=== PATIENT | male | born 1990 | race Caucasian/White ===

== ENCOUNTER → 2020-03-22 12:06 | Outpatient (BNVA) | payer OTHER, SELFPAY | PROVIDERS: Family Provider Nurse Practitioner Family; PCP Nurse Practitioner Family; Visit Provider Nurse Practitioner Family | DX: E03.9 Hypothyroidism, unspecified (principal) | CPT/HCPCS: 84443 ==

== ENCOUNTER → 2021-04-25 08:57 | Outpatient (BNVA) | payer OTHER, SELFPAY | PROVIDERS: Family Provider Nurse Practitioner Family; PCP Nurse Practitioner Family; Visit Provider Nurse Practitioner Family | DX: E03.9 Hypothyroidism, unspecified (principal) | CPT/HCPCS: 80053; 80061; 84443; 85025 ==

== ENCOUNTER 2021-12-04 01:27 | Emergency (ER) | payer OTHER, SELFPAY ==
--- NOTE | 2021-12-04 01:37 | ECG_ITS ---
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 Measurements Intervals [place] Rate: 102 P: 60 [place]: 128 QRS: 50 QRSD: 86 T: 33 QT: 332 QTc: 434 Interpretive Statements SINUS TACHYCARDIA POSSIBLE RIGHT VENTRICULAR CONDUCTION DELAY [RSR (QR) IN V1/V2] NONSPECIFIC T-WAVE ABNORMALITY ABNORMAL RHYTHM ECG No previous ECG available for comparison Electronically Signed On 12-05-2021 0:39:39 CDT by Dami Gray M.D. [id number]
--- NOTE | 2021-12-04 01:40 | XRR_ITS ---
PROCEDURE INFORMATION: Exam: XR Chest Exam date and time: 12/04/2021 2:01 AM Age: 31 years old Clinical indication: Chest pressure and chest wall pain and right-sided; Additional info: Chest pain began 6 hrs ago TECHNIQUE: Imaging protocol: Radiologic exam of the chest. Views: 1 view. COMPARISON: No relevant prior studies available. FINDINGS: Lungs: Unremarkable. No consolidation. Pleural spaces: Unremarkable. No pleural effusion. No pneumothorax. Heart/Mediastinum: Unremarkable. No cardiomegaly. Bones/joints: Unremarkable. XR/XR chest 1V portable [id number] IMPRESSION: No acute findings.
[2021-12-04 01:43] VITALS: BP 143/81; PULSE 100; RESP 18; TEMP 37.2; O2SAT 97; BMI 25.5
[2021-12-04 01:49] LABS: Basophils % 0.3 %; Eosinophils # 0.1 10^3/uL (0.0-0.8); Eosinophils % 0.5 %; Hemoglobin 15.5 g/dL (11.7-16.6); Lymphocytes # 1.2 10^3/uL (0.8-4.8); Lymphocytes % 9.5 %; Mean Corpuscular HGB Conc 33.7 g/dL (30.0-36.0); Mean Platelet Volume 9.6 fL (7.4-10.4); Monocytes # 1.2 10^3/uL (0.2-0.9); Monocytes % 8.8 %; Neutrophils # 10.54 10^3/uL (1.8-7.7); Neutrophils % 80.6 %; Nucleated Red Blood Cells % 0 %; Platelet Count 201 10^3/cmm (130-400); Red Blood Count 5.17 10^6/uL (4.1-5.3); Red Cell Distribution Width 11.7 % (12.1-15.1); White Blood Count 13.1 10^3/uL (4.0-10.0)
--- NOTE | 2021-12-04 01:56 | W.ED.CHESTPA ---
Documented by User: ELIZABETH Antonio 12/05/21 12:07 HPI - Chest Pain General: Chief Complaint: Chest Pain Stated Complaint: Chest pain, sob Time Seen by Provider: 12/04/21 01:33 History of Present Illness: 31-year-old male patient comes in today with complaints of right anterior chest wall pain. Patient reports pain is increased with deep inspiration and movement. Patient is concerned of a blood clot due to the fact of a recent injury to the right lower leg with repair at the end of September. Patient does take levothyroxine routinely for hypothyroidism. Associated symptoms: Deny dyspnea Review of Systems General: Reports: 10 or more systems reviewed and unremarkable except in HPI and below Card: Reports: chest pain Resp: Denies: dyspnea PFSH ED PFSH: Medical History History of radioactive iodine thyroid ablation Hypothyroidism, adult Social History Smoking and tobacco status: never smoked Second hand smoke exposure: No Alcohol intake: never Adopted: No Lives independently: Yes Marital status: Single Highest education level completed: High School Graduate Current occupational status: employed Physical Exam Const: COMMON NORMALS: alert HENMT: COMMON NORMALS: normocephalic HEAD & SCALP: normocephalic Chest: CHEST: Yes tenderness (Right anterior ribs) Resp: COMMON NORMALS: normal respiratory effort and clear to auscultation bilaterally AUSCULTATION: clear to auscultation bilaterally Cardio: COMMON NORMALS: regular rate RATE: regular rate Extremity: COMMON NORMALS: normal to inspection Neuro: SENSORIUM/ORIENTATION: Yes alert Skin: COMMON NORMALS: no rashes or lesions noted GENERAL SKIN EXAM: no rashes or lesions noted Course Vital Signs: Vital signs: Vital Signs Temperature 98.9 F 12/04/21 01:43 Pulse Rate 82 12/04/21 03:53 Respiratory Rate 16 12/04/21 03:53 Blood Pressure 130/87 12/04/21 03:53 Pulse Oximetry 96 12/04/21 03:53 Oxygen Delivery Me thod 12/04/21 01:43 MDM - Chest Pain Medical Decision Making 31-year-old male patient comes in today with right anterior chest pain. On exam patient has tenderness with palpation of the chest wall. Lungs were clear to auscultation. Skin was warm and dry. Vital signs noted a mild increase in pulse between 90 and 110, respirations in the 20s, and oxygen saturation in the mid 90s. Differential diagnosis includes costochondritis, pleurisy, pulmonary embolism, pneumonia. Lab Data : 12/04/21 01:45 12/04/21 01:45 Radiology Impressions Chest X-Ray 12/04/21 01:40 IMPRESSION: No acute findings. Chest CTA 12/04/21 02:18 IMPRESSION: 1. Acute pulmonary embolus within a segmental branch of the right lower lobe pulmonary artery. 2. A patchy opacity seen in the right posterior costophrenic recess likely representing atelectasis. ADDENDUM: 12/04/21 0331 CRITICAL RESULT: THIS REPORT CONTAINS FINDINGS THAT MAY BE CRITICAL TO PATIENT CARE. The findings were verbally communicated via telephone conference with Dr. Ledesma at 3:29 AM CDT on 12/04/2021. The findings were acknowledged and understood. Laboratory Results WBC 13.1 10^3/uL (4.0-10.0) H 12/04/21 01:45 RBC 5.17 10^6/uL (4.1-5.3) 12/04/21 01:45 Hgb 15.5 g/dL (11.7-16.6) 12/04/21 01:45 Hct 46.0 % (42.0-52.0) 12/04/21 01:45 MCV 89.0 fl (80-94) 12/04/21 01:45 MCH 30.0 pg (28.0-34.0) 12/04/21 01:45 MCHC 33.7 g/dL (30.0-36.0) 12/04/21 01:45 RDW 11.7 % (12.1-15.1) L 12/04/21 01:45 Plt Count 201 10^3/cmm (130-400) 12/04/21 01:45 MPV 9.6 fL (7.4-10.4) 12/04/21 01:45 Neut % (Auto) 80.6 % 12/04/21 01:45 Lymph % (Auto) 9.5 % 12/04/21 01:45 [place] % (Auto) 8.8 % 12/04/21 01:45 Eos % (Auto) 0.5 % 12/04/21 01:45 Baso % (Auto) 0.3 % 12/04/21 01:45 Neut # (Auto) 10.54 10^3/uL (1.8-7.7) H 12/04/21 01:45 Lymph # (Auto) 1.2 10^3/uL (0.8-4.8) 12/04/21 01:45 [place] # (Auto) 1.2 10^3/uL (0.2-0.9) H 12/04/21 01:45 Eos # (Auto) 0.1 10^3/uL (0.0-0.8) 12/04/21 01:45 Baso # (Auto) 0.0 10^3/uL (0.0-0.1) 12/04/21 01:45 Nucleated RBC % (auto) 0 % 12/04/21 01:45 Nucleated RBCs # 0.0 /100WBC 12/04/21 01:45 D-Dimer 3.12 ug/mIFEU (0-0.59) H 12/04/21 01:45 Sodium 139 mmol/L (136-145) 12/04/21 01:45 Potassium 3.9 mmol/L (3.5-5.1) 12/04/21 01:45 Chloride 98 mmol/L (98-107) 12/04/21 01:45 Carbon Dioxide 28 mmol/L (22-29) 12/04/21 01:45 Anion Gap 16.9 (5-19) 12/04/21 01:45 BUN 16 mg/dL (6-20) 12/04/21 01:45 Creatinine 0.9 mg/dL (0.7-1.2) 12/04/21 01:45 GFR Calculation 98.4 mL/min (90-130) 12/04/21 01:45 Glucose 102 mg/dL (65-115) 12/04/21 01:45 Calculated Osmolality 289 mOsm/kg (285-295) 12/04/21 01:45 Calcium 9.3 mg/dL (8.5-10.5) 12/04/21 01:45 Total Bilirubin 0.9 mg/dL (0.15-1.2) 12/04/21 01:45 AST 19 U/L (0-40) 12/04/21 01:45 ALT 17 U/L (0-41) 12/04/21 01:45 Alkaline Phosphatase 94 IU/L (40-130) 12/04/21 01:45 Troponin T Baseline 7 ng/L (0-15) 12/04/21 01:45 Total Protein 7.7 g/dL (6.6-8.7) 12/04/21 01:45 Albumin 4.5 g/dL (3.5-5.2) 12/04/21 01:45 Globulin 3.2 g/dL (1.3-4.6) 12/04/21 01:45 EKG Data EKG 1: EKG interpretation date: 12/04/21 EKG interpretation time: 02:02 Discharge Plan Discharge Patient Disposition: Home Clinical Impression: Pulmonary embolism Qualifiers: Pulmonary embolism type: unspecified Chronicity: acute Acute cor pulmonale presence: without acute cor pulmonale Qualified Code(s): I26.99 - Other pulmonary embolism without acute cor pulmonale Condition: Stable Prescriptions: New Eliquis 5 mg tablet 10 mg PO BID 7 Days Qty: 28 0RF Eliquis 5 mg tablet 5 mg PO BID Qty: 60 0RF Rx Instructions: start after first week of 10mg bid hydrocodone-acetaminophen 5-325 mg tablet 1 tab PO Q6H PRN (Reason: pain) Qty: 14 0RF No Action levothyroxine 112 mcg tablet 112 mcg PO DAILY 90 Days Qty: 90 3RF Rx Instructions: no substitutions, levothyroxine only Discharge Orders: Discharge ED (Routine); Ordered 12/04/21 Ordered By: Guy Ledesma Referrals: Shira Navarro FNP-C [Primary Care Provider] - 1-3 days Discharge Diet: Advance as tolerated Discharge Activity: Resume usual activity Patient Instructions: Pulmonary Embolism (ED) Coding Level of Care Code ED Sign Builder for Chg Fwd Exam Detailed Documented by User: Guy Ledesma MD 12/04/21 03:36 HPI - Chest Pain General: Chief Complaint: Chest Pain Stated Complaint: Chest pain, sob Time Seen by Provider: 12/04/21 01:33 [facility] ED PFSH: Medical History History of radioactive iodine thyroid ablation Hypothyroidism, adult Social History Smoking and tobacco status: never smoked Second hand smoke exposure: No Alcohol intake: never Adopted: No Lives independently: Yes Marital status: Single Highest education level completed: High School Graduate Current occupational status: employed Course Vital Signs: Vital signs: Vital Signs Temperature 98.9 F 12/04/21 01:43 Pulse Rate 82 12/04/21 03:53 Respiratory Rate 16 12/04/21 03:53 Blood Pressure 130/87 12/04/21 03:53 Pulse Oximetry 96 12/04/21 03:53 Oxygen Delivery Me thod 12/04/21 01:43 MDM - Chest Pain Medical Decision Making 31-year-old male patient comes in today with right anterior chest pain. On exam patient has tenderness with palpation of the chest wall. Lungs were clear to auscultation. Skin was warm and dry. Vital signs noted a mild increase in pulse between 90 and 110, respirations in the 20s, and oxygen saturation in the mid 90s. Differential diagnosis includes costochondritis, pleurisy, pulmonary embolism, pneumonia. Patient's CT shows a right-sided segmental PE he has no signs of heart strain troponin here is normal he is well-appearing here in no distress we will start him on Eliquis he is to follow-up with PCP in 5 to 7 days we will prescribe him pain meds as well. Lab Data : 12/04/21 01:45 12/04/21 01:45 Radiology Impressions Chest X-Ray 12/04/21 01:40 IMPRESSION: No acute findings. Chest CTA 12/04/21 02:18 IMPRESSION: 1. Acute pulmonary embolus within a segmental branch of the right lower lobe pulmonary artery. 2. A patchy opacity seen in the right posterior costophrenic recess likely representing atelectasis. ADDENDUM: 12/04/21 0331 CRITICAL RESULT: THIS REPORT CONTAINS FINDINGS THAT MAY BE CRITICAL TO PATIENT CARE. The findings were verbally communicated via telephone conference with Dr. Ledesma at 3:29 AM CDT on 12/04/2021. The findings were acknowledged and understood. Laboratory Results WBC 13.1 10^3/uL (4.0-10.0) H 12/04/21 01:45 RBC 5.17 10^6/uL (4.1-5.3) 12/04/21 01:45 Hgb 15.5 g/dL (11.7-16.6) 12/04/21 01:45 Hct 46.0 % (42.0-52.0) 12/04/21 01:45 MCV 89.0 fl (80-94) 12/04/21 01:45 MCH 30.0 pg (28.0-34.0) 12/04/21 01:45 MCHC 33.7 g/dL (30.0-36.0) 12/04/21 01:45 RDW 11.7 % (12.1-15.1) L 12/04/21 01:45 Plt Count 201 10^3/cmm (130-400) 12/04/21 01:45 MPV 9.6 fL (7.4-10.4) 12/04/21 01:45 Neut % (Auto) 80.6 % 12/04/21 01:45 Lymph % (Auto) 9.5 % 12/04/21 01:45 [place] % (Auto) 8.8 % 12/04/21 01:45 Eos % (Auto) 0.5 % 12/04/21 01:45 Baso % (Auto) 0.3 % 12/04/21 01:45 Neut # (Auto) 10.54 10^3/uL (1.8-7.7) H 12/04/21 01:45 Lymph # (Auto) 1.2 10^3/uL (0.8-4.8) 12/04/21 01:45 [place] # (Auto) 1.2 10^3/uL (0.2-0.9) H 12/04/21 01:45 Eos # (Auto) 0.1 10^3/uL (0.0-0.8) 12/04/21 01:45 Baso # (Auto) 0.0 10^3/uL (0.0-0.1) 12/04/21 01:45 Nucleated RBC % (auto) 0 % 12/04/21 01:45 Nucleated RBCs # 0.0 /100WBC 12/04/21 01:45 D-Dimer 3.12 ug/mIFEU (0-0.59) H 12/04/21 01:45 Sodium 139 mmol/L (136-145) 12/04/21 01:45 Potassium 3.9 mmol/L (3.5-5.1) 12/04/21 01:45 Chloride 98 mmol/L (98-107) 12/04/21 01:45 Carbon Dioxide 28 mmol/L (22-29) 12/04/21 01:45 Anion Gap 16.9 (5-19) 12/04/21 01:45 BUN 16 mg/dL (6-20) 12/04/21 01:45 Creatinine 0.9 mg/dL (0.7-1.2) 12/04/21 01:45 GFR Calculation 98.4 mL/min (90-130) 12/04/21 01:45 Glucose 102 mg/dL (65-115) 12/04/21 01:45 Calculated Osmolality 289 mOsm/kg (285-295) 12/04/21 01:45 Calcium 9.3 mg/dL (8.5-10.5) 12/04/21 01:45 Total Bilirubin 0.9 mg/dL (0.15-1.2) 12/04/21 01:45 AST 19 U/L (0-40) 12/04/21 01:45 ALT 17 U/L (0-41) 12/04/21 01:45 Alkaline Phosphatase 94 IU/L (40-130) 12/04/21 01:45 Troponin T Baseline 7 ng/L (0-15) 12/04/21 01:45 Total Protein 7.7 g/dL (6.6-8.7) 12/04/21 01:45 Albumin 4.5 g/dL (3.5-5.2) 12/04/21 01:45 Globulin 3.2 g/dL (1.3-4.6) 12/04/21 01:45 Discharge Plan Discharge Patient Disposition: Home Clinical Impression: Pulmonary embolism Qualifiers: Pulmonary embolism type: unspecified Chronicity: acute Acute cor pulmonale presence: without acute cor pulmonale Qualified Code(s): I26.99 - Other pulmonary embolism without acute cor pulmonale Condition: Stable Prescriptions: New Eliquis 5 mg tablet 10 mg PO BID 7 Days Qty: 28 0RF Eliquis 5 mg tablet 5 mg PO BID Qty: 60 0RF Rx Instructions: start after first week of 10mg bid hydrocodone-acetaminophen 5-325 mg tablet 1 tab PO Q6H PRN (Reason: pain) Qty: 14 0RF No Action levothyroxine 112 mcg tablet 112 mcg PO DAILY 90 Days Qty: 90 3RF Rx Instructions: no substitutions, levothyroxine only Discharge Orders: Discharge ED (Routine); Ordered 12/04/21 Ordered By: Guy Ledesma Referrals: Shira Navarro FNP-C [Primary Care Provider] - 1-3 days Discharge Diet: Advance as tolerated Discharge Activity: Resume usual activity Patient Instructions: Pulmonary Embolism (ED) Coding Level of Care Code ED Sign Builder for Gradyg Fwd Exam Detailed
[2021-12-04] MEDS: dexamethasone 10 mg/mL INJ IVP (02:06)
[2021-12-04] MEDS: ketorolac 30 mg/mL INJ 15 MG IVP (02:07)
[2021-12-04 02:09] LABS: D Dimer 3.12 ug/mIFEU (0-0.59)
[2021-12-04 02:14] LABS: Alanine Aminotransferase 17 U/L (0-41); Albumin Level 4.5 g/dL (3.5-5.2); Alkaline Phosphatase 94 IU/L (40-130); Anion Gap 16.9 (5-19); Aspartate Amino Transferase 19 U/L (0-40); Blood Urea Nitrogen 16 mg/dL (6-20); Calcium 9.3 mg/dL (8.5-10.5); Carbon Dioxide 28 mmol/L (22-29); Chloride 98 mmol/L (98-107); Globulin 3.2 g/dL (1.3-4.6); Glomerular Filtration Rate 98.4 mL/min (90-130); Glucose 102 mg/dL (65-115); Osmolality Calculated 289 mOsm/kg (285-295); Potassium 3.9 mmol/L (3.5-5.1); Sodium 139 mmol/L (136-145); Total Bilirubin 0.9 mg/dL (0.15-1.2); Total Protein 7.7 g/dL (6.6-8.7)
[2021-12-04 02:15] LABS: Troponin(5th) Baseline 7 ng/L (0-15)
--- NOTE | 2021-12-04 02:18 | CTR_ITS ---
PROCEDURE INFORMATION: Exam: CTA Chest With Contrast Exam date and time: 12/04/2021 2:53 AM Age: 31 years old Clinical indication: Chest wall pain and right-sided; Additional info: Chest pain, elvated d dimer TECHNIQUE: Imaging protocol: Computed tomographic angiography of the chest with contrast. 3D rendering (Not supervised by radiologist): MIP and/or 3D reconstructed images were created by the technologist. Radiation optimization: All CT scans at this facility use at least one of these dose optimization techniques: automated exposure control; mA and/or kV adjustment per patient size (includes targeted exams where dose is matched to clinical indication); or iterative reconstruction. Contrast material: OMNIPAQUE 350; Contrast volume: 95 ml; Contrast route: INTRAVENOUS (IV); COMPARISON: CR (CHEST, ) 12/04/2021 2:01 AM RADIATION DOSE METRICS: Total DLP (mGy-cm): 358.93 FINDINGS: Pulmonary arteries: There is intraluminal hypoattenuation filling defect seen within a segmental branch of the right lower lobe pulmonary artery compatible with acute pulmonary embolus. Aorta: Unremarkable. No aortic aneurysm. No aortic dissection. Lungs: See Pleural spaces finding. Pleural spaces: A patchy opacity seen in the right posterior costophrenic recess possibly representing atelectasis although a right basilar infiltrate and pneumonia cannot be excluded. Heart: Unremarkable. No cardiomegaly. No pericardial effusion. Heart RV/LV ratio: RV/LV ratio is 1.0. Lymph nodes: Unremarkable. No enlarged lymph nodes. Bones/joints: Unremarkable. No acute fracture. Soft tissues: Unremarkable. CT/CT angio chest PE protcl [id number] IMPRESSION: 1. Acute pulmonary embolus within a segmental branch of the right lower lobe pulmonary artery. 2. A patchy opacity seen in the right posterior costophrenic recess likely representing atelectasis.
[2021-12-04] MEDS: iohexol 350 mg/mL 100 mL Btl IV (03:04)
[2021-12-04] MEDS: apixaban 5 mg Tablet 10 MG PO (03:45)
[2021-12-04 03:53] VITALS: BP 130/87; PULSE 82; RESP 16; O2SAT 96
== END 2021-12-04 03:54 | disposition home or self-care (01) ==
PROVIDERS: Nurse Practitioner Family; Emergency Provider Emergency Medicine; PCP Nurse Practitioner Family
DX: I26.99 Other pulmonary embolism without acute cor pulmonale (principal)
CPT/HCPCS: 71045; 71275; 80053; 84484; 85025; 85378; 93005; 96374; 96375; 99285; J1100; J1885; Q9967

== ENCOUNTER 2021-12-06 09:06 | Observation (INO) | payer OTHER, SELFPAY ==
[2021-12-06] VITALS (37 sets, daily range): BP systolic 105–142; BP diastolic 64–97; PULSE 77–106; RESP 16–33; TEMP 36.8–37.7; O2SAT 89–96; BMI 25.5
--- NOTE | 2021-12-06 09:33 | XR_ITS ---
WS: [id number] XR chest 1V portable [id number] REASON FOR EXAM: cp and sob FINDINGS: Compared to the chest x-ray of 12/04/2021 ill-defined opacities are now identified in both lower lung f ields. There is blunting of the left costophrenic angle which could indicate a small amount of left p leural fluid. CT scan on 12/04/2021 demonstrated patchy lung opacity in the dependent posterior right l alethea. No other interval change or new finding. XR/XR chest 1V portable [id number] IMPRESSION: Progression of bilateral lung abnormality, presumably pneumonitis.
--- NOTE | 2021-12-06 09:34 | ECG_ITS ---
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 Measurements Intervals [place] Rate: 90 P: 57 VT: 112 QRS: 31 QRSD: 96 T: 19 QT: 349 QTc: 429 Interpretive Statements SINUS RHYTHM WITH SHORT VT INTERVAL POSSIBLE RIGHT VENTRICULAR CONDUCTION DELAY [RSR (QR) IN V1/V2] Compared to ECG 12/04/2021 01:37:40 Short VT interval now present Sinus tachycardia no longer present T-wave abnormality no longer present Electronically Signed On 12-07-2021 18:49:27 CDT by Courtney Drake M.D. [email or web address]/[id number]
--- NOTE | 2021-12-06 09:56 | W.ED.CHESTPA ---
HPI - Chest Pain General: Chief Complaint: Chest Pain Stated Complaint: chest pains Time Seen by Provider: 12/06/21 09:23 History of Present Illness: Patient is a 31-year-old male comes to the ED with chest pain and shortness of breath. Patient was seen here in the ED 2 days ago on December 04 and had same complaint and was diagnosed with a PE and was put on Eliquis. He has been taking the prescribed Eliquis since discharge from ED. When his symptoms first started couple days ago he was having pain on the right side of his chest. Over the last 24 hours he said the pain on the right side of his chest has resolved but he started developing some sharp pains on the left side of his chest. He rates him currently a 5 out of 10. Says his pain and shortness of breath symptoms worsen if he lies flat and improved when he is sitting up. Denies any fevers, cough or hemoptysis. Associated symptoms: Reports dyspnea; Deny abdominal pain, fever(s), nausea, palpitations or vomiting Review of Systems Const: Denies: fever(s), chills or fatigue Eyes: Denies: change in vision or eye discomfort ENMT: Denies: throat pain, odynophagia, nasal discharge or nasal congestion Card: Reports: chest pain; Denies: palpitations, edema, swelling of feet/ankles, dyspnea on exertion or orthopnea Resp: Reports: dyspnea; Denies: productive cough or non-productive cough GI: Denies: abdominal pain, nausea, vomiting, diarrhea, constipation or hematochezia : Denies: flank pain, difficulty urinating, dysuria or hematuria Musc: Denies: neck pain, back pain or extremity swelling Skin/Breast: Denies: rash or new lesions Neuro: Denies: headache(s), numbness in extremities or weakness in extremities PFSH ED PFSH: Medical History History of radioactive iodine thyroid ablation Hypothyroidism, adult Surgical History History of surgery on lower extremity Social History Smoking and tobacco status: never smoked Second hand smoke exposure: No Alcohol intake: never Adopted: No Lives independently: Yes Marital status: Single Highest education level completed: High School Graduate Current occupational status: employed Physical Exam Const: COMMON NORMALS: patient oriented x3 HENMT: COMMON NORMALS: normocephalic HEAD & SCALP: normocephalic MOUTH: Normal oral and palatal mucosa present THROAT: posterior oropharynx normal and uvula midline Neck/C-Spine: COMMON NORMALS: supple GENERAL: Yes normal visual inspection Resp: COMMON NORMALS: normal respiratory effort, No retractions, No use of accessory muscles and clear to auscultation bilaterally AUSCULTATION: clear to auscultation bilaterally Cardio: COMMON NORMALS: regular rate, regular rhythm, S1 normal heart sound present, S2 normal heart sound present, No gallops present (Cardio), No clicks present (Cardio), No murmurs present (Cardio) and Peripheral pulses 2+ throughout RATE: regular rate RHYTHM: regular rhythm HEART SOUNDS: S1 normal heart sound present and S2 normal heart sound present PERIPHERAL PULSES: Peripheral pulses 2+ throughout GI: COMMON NORMALS: Normal to inspection, nondistended, normoactive bowel sounds present, Soft to palpation, non-tender and no masses PALPATION: Yes Soft to palpation : COMMON NORMALS: Yes no CVA tenderness BLADDER/KIDNEY EXAM: Yes no CVA tenderness Back/Pelvis: COMMON NORMALS: no CVA tenderness Extremity: COMMON NORMALS: normal to inspection Neuro: COMMON NORMALS: patient oriented x3 GAIT: Yes Normal gait present Skin: GENERAL SKIN EXAM: dry skin Course Vital Signs: Vital signs: Vital Signs Temperature 98.9 F 12/07/21 04:00 Pulse Rate 78 12/07/21 05:09 Respiratory Rate 18 12/07/21 04:00 Blood Pressure 110/73 12/07/21 04:00 Pulse Oximetry 96 12/07/21 00:00 Oxygen Delivery Me thod 12/06/21 21:02 MDM - Chest Pain Medical Decision Making Patient is a 31-year-old male comes to the ED with new left-sided chest pain. Patient was seen here in the ED 2 days ago on December 04 and was diagnosed with a PE and started on Eliquis. Vitals are stable. Exam of patient is benign. CBC and CMP were unremarkable. Troponins negative. EKG showed no acute findings. Patient's chest pain was not improving with morphine and Dilaudid. CTA of chest was done to see if there is any changes in PE. CTA of chest showed new PE in the left upper and left lower lobe segmental branches and it did note some mild right heart strain that is new as well. Bilateral lower lobe pulmonary infarcts noted. Given patient's pain and new PE with right heart strain, I talk with Dr. Marie about having patient case and he agreed to have patient admitted. Dr. Marie contacted hospitalist patient was admitted to the hospital. Lab Data I reviewed the patient's lab results. : 12/07/21 05:17 12/07/21 05:17 Radiology Impressions Chest X-Ray 12/06/21 09:33 IMPRESSION: Progression of bilateral lung abnormality, presumably pneumonitis. Chest CTA 12/06/21 12:14 IMPRESSION: 1. Suboptimal opacification of the pulmonary arteries. 2. Despite the suboptimal opacification new pulmonary emboli is noted extending into the LEFT upper and LEFT lower lobe segmental branches. 3. New small bilateral pleural effusions. 4. Progression of bilateral lower lobe pulmonary infarcts and an additional infarct at the lingula. 5. Mild RIGHT heart strain is new. Laboratory Results WBC 10.0 10^3/uL (4.0-10.0) 12/06/21 10:12 RBC 4.97 10^6/uL (4.1-5.3) 12/06/21 10:12 Hgb 14.9 g/dL (11.7-16.6) 12/06/21 10:12 Hct 45.2 % (42.0-52.0) 12/06/21 10:12 MCV 90.9 fl (80-94) 12/06/21 10:12 MCH 30.0 pg (28.0-34.0) 12/06/21 10:12 MCHC 33.0 g/dL (30.0-36.0) 12/06/21 10:12 RDW 11.9 % (12.1-15.1) L 12/06/21 10:12 Plt Count 197 10^3/cmm (130-400) 12/06/21 10:12 MPV 9.6 fL (7.4-10.4) 12/06/21 10:12 Neut % (Auto) 76.1 % 12/06/21 10:12 Lymph % (Auto) 12.1 % 12/06/21 10:12 [place] % (Auto) 11.1 % 12/06/21 10:12 Eos % (Auto) 0.2 % 12/06/21 10:12 Baso % (Auto) 0.3 % 12/06/21 10:12 Neut # (Auto) 7.58 10^3/uL (1.8-7.7) 12/06/21 10:12 Lymph # (Auto) 1.2 10^3/uL (0.8-4.8) 12/06/21 10:12 [place] # (Auto) 1.1 10^3/uL (0.2-0.9) H 12/06/21 10:12 Eos # (Auto) 0.0 10^3/uL (0.0-0.8) 12/06/21 10:12 Baso # (Auto) 0.0 10^3/uL (0.0-0.1) 12/06/21 10:12 Nucleated RBC % (auto) 0 % 12/06/21 10: Nucleated RBCs # 0.0 /100WBC 12/06/21 10:12 PT 16.00 SECONDS (12.1-14.9) H 12/06/21 12:33 INR 1.24 (0.8-1.2) H 12/06/21 12:33 APTT 33.9 SECONDS (23.9-36.7) 12/06/21 12:33 Sodium 140 mmol/L (136-145) 12/06/21 10:20 Potassium 4.3 mmol/L (3.5-5.1) 12/06/21 10:20 Chloride 98 mmol/L (98-107) 12/06/21 10:20 Carbon Dioxide 26 mmol/L (22-29) 12/06/21 10:20 Anion Gap 20.3 (5-19) H 12/06/21 10:20 BUN 12 mg/dL (6-20) 12/06/21 10:20 Creatinine 0.9 mg/dL (0.7-1.2) 12/06/21 10:20 GFR Calculation 98.4 mL/min (90-130) 12/06/21 10:20 Glucose 80 mg/dL (65-115) 12/06/21 10:20 Calculated Osmolality 289 mOsm/kg (285-295) 12/06/21 10:20 Calcium 9.5 mg/dL (8.5-10.5) 12/06/21 10:20 Total Bilirubin 0.7 mg/dL (0.15-1.2) 12/06/21 10:20 AST 21 U/L (0-40) 12/06/21 10:20 ALT 15 U/L (0-41) 12/06/21 10:20 Alkaline Phosphatase 86 IU/L (40-130) 12/06/21 10:20 Troponin T Baseline 6 ng/L (0-15) 12/06/21 10:12 Troponin T 120 Minute 6.00 ng/L (0-15) 12/06/21 12:33 Delta Troponin T 0 ABS# (0-10) 12/06/21 12:33 Total Protein 8.0 g/dL (6.6-8.7) 12/06/21 10:20 Albumin 4.4 g/dL (3.5-5.2) 12/06/21 10:20 Globulin 3.6 g/dL (1.3-4.6) 12/06/21 10:20 EKG Data EKG 1: EKG interpretation date: 12/06/21 Interpretation: Sinus rhythm, 90 bpm, no ST segment elevation or depression seen. Discharge Plan Discharge Patient Disposition: Admitted As Inpatient Admit Provider: Althea Vance Clinical Impression: Pulmonary embolism, Chest pain Condition: Stable Coding Level of Care Code ED Immigration Case Manager for Chg Fwd Exam Comprehensive
[2021-12-06 10:37] LABS: Basophils % 0.3 %; Eosinophils % 0.2 %; Hematocrit 45.2 % (42.0-52.0); Hemoglobin 14.9 g/dL (11.7-16.6); Lymphocytes # 1.2 10^3/uL (0.8-4.8); Lymphocytes % 12.1 %; Mean Corpuscular Volume 90.9 fl (80-94); Mean Platelet Volume 9.6 fL (7.4-10.4); Monocytes # 1.1 10^3/uL (0.2-0.9); Monocytes % 11.1 %; Neutrophils # 7.58 10^3/uL (1.8-7.7); Neutrophils % 76.1 %; Nucleated Red Blood Cells % 0 %; Platelet Count 197 10^3/cmm (130-400); Red Blood Count 4.97 10^6/uL (4.1-5.3); Red Cell Distribution Width 11.9 % (12.1-15.1)
[2021-12-06 10:49] LABS: Troponin(5th) Baseline 6 ng/L (0-15)
[2021-12-06 11:25] LABS: Albumin Level 4.4 g/dL (3.5-5.2); Alkaline Phosphatase 86 IU/L (40-130); Blood Urea Nitrogen 12 mg/dL (6-20); Calcium 9.5 mg/dL (8.5-10.5); Carbon Dioxide 26 mmol/L (22-29); Chloride 98 mmol/L (98-107); Globulin 3.6 g/dL (1.3-4.6); Glomerular Filtration Rate 98.4 mL/min (90-130); Glucose 80 mg/dL (65-115); Osmolality Calculated 289 mOsm/kg (285-295); Sodium 140 mmol/L (136-145); Total Bilirubin 0.7 mg/dL (0.15-1.2)
[2021-12-06 11:26] LABS: Alanine Aminotransferase 15 U/L (0-41); Anion Gap 20.3 (5-19); Aspartate Amino Transferase 21 U/L (0-40); Potassium 4.3 mmol/L (3.5-5.1)
[2021-12-06] MEDS: ondansetron 2 mg/ML SDV 2 mL 4 MG IVP (11:38)
[2021-12-06] MEDS: morphine 4 mg/mL SDV 1 mL IVP (11:39)
--- NOTE | 2021-12-06 12:14 | CT_ITS ---
WS: [id number] CT CHEST ANGIOGRAPHY WITH REFORMATS HISTORY: new and intense Left side cp w/ SOB TECHNIQUE: Contiguous axial images are obtained through the chest during arterial injection of intrav enous contrast. Images are reconstructed to evaluate the pulmonary arteries. MIP imaging also reviewe d. All CT scans at [facility] use at least one of these dose optimization techniques: automat ed exposure control; mA and/or kV adjustment per patient size (includes targeted exams where dose is matched to clinical indication); or iterative reconstruction. CONTRAST: Omnipaque 350; 9 mL IV. DLP: 15.25 mGy.cm COMPARISON: 12/04/2021 Poor opacification of the pulmonary arteries. Quality of this examination is suboptimal. There is sig nificant motion artifact. Centrally no pulmonary embolism. There is a new pulmonary embolism extendin g into the proximal branches of the LEFT lower lobe pulmonary artery. This new emboli in the LEFT upp er lobe extends into several of the branches. The recently described emboli in segmental branch of th e RIGHT lower lobe artery is unchanged. No emboli in the RIGHT upper lobe proximal segmental branches . There is also new mild RIGHT heart strain. Heart remains slightly enlarged. No pericardial effusion . Lung volumes are decreased. Patchy opacifications have developed in the periphery of the lingula and LEFT lower lobe. Increase in size of the opacifications in the RIGHT lower lobe. These are consistent with a pulmonary infarcts. Interval development of small bilateral pleural effusions. Small hiatal hernia. CT/CT angio chest PE protcl [id number] IMPRESSION: 1. Suboptimal opacification of the pulmonary arteries. 2. Despite the suboptimal opacification new pulmonary emboli is noted extendin g into the LEFT upper and LEFT lower lobe segmental branches. 3. New small bilateral pleural effusions. 4. Progression of bilateral lower lobe pulmonary infarcts and an additional in farct at the lingula. 5. Mild RIGHT heart strain is new.
--- NOTE | 2021-12-06 12:39 | ECG_ITS ---
[facility] Test Date: 2021-12-06 Pat Name: Sánchez Treadwell Department: Room: Gender: Male Stain Remover: : 1990 Requested By: Endy Vyas Order Number: [id number] Mauro MD: Courtney Drake M.D. Measurements Intervals [place] Rate: 91 P: 41 HI: 136 QRS: 30 QRSD: 93 T: 19 QT: 337 QTc: 417 Interpretive Statements SINUS RHYTHM Compared to ECG 12/06/2021 09:45:16 Short HI interval no longer present Electronically Signed On 12-07-2021 19:01:31 CDT by Courtney Drake M.D. [email or web address] ([id number]
[2021-12-06] MEDS: iohexol 350 mg/mL 100 mL Btl IV ×2 (12:49→13:12)
[2021-12-06 12:54] LABS: INR 1.24 (0.8-1.2)
[2021-12-06 12:55] LABS: Partial Thromboplastin Time 33.9 SECONDS (23.9-36.7)
[2021-12-06] MEDS: HYDROmorphone 1 mg/mL INJ 1 mL 0.5 MG IVP (13:19)
--- NOTE | 2021-12-06 15:16 | PM.HP ---
Providers/Chief Complaint Primary Care Provider: AYLA Torres Chief Complaint: chest pains History of Present Illness Sánchez Treadwell is a 31 year old male who developed provoked DVT after his right leg surgery for his wound, patient is stating that he was nonweightbearing on right foot which caused excessive swelling of his right calf muscle, he could not get an appointment to see PT, he started walking on his foot that is due to swelling however 1 day he started experiencing pain in his chest on the right side he was diagnosed with DVT and right-sided PE, today he is back in the hospital with chief complaint of left-sided chest pain which is unbearable it is excruciating it is not associated with shortness of breath, fever or any vomiting. No family history of hypercoagulable disorder. 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 [place] Review of Systems Const: Denies: fever(s) Eyes: Denies: change in vision ENMT: Denies: throat pain Card: Reports: chest pain Resp: Reports: dyspnea GI: Denies: abdominal pain : Denies: flank pain Musc: Denies: neck pain Skin/Breast: Denies: rash Neuro: Denies: headache(s) Psych: Denies: anxiety Endo: Denies: polyuria Ruben/Lymph: Denies: easy bruising All/Imm: Denies: urticaria Medications/Allergies Home Medications Medication Instructions Recorded Confirmed Last Taken Type levothyroxine 112 mcg tablet 112 mcg PO DAILY 90 days #90 tabs 04/25/21 12/06/21 12/06/21 Rx apixaban 5 mg tablet (Eliquis) 5 mg PO BID #60 tabs 12/04/21 12/06/21 Unknown Rx apixaban 5 mg tablet (Eliquis) 10 mg PO BID 7 days #28 tabs 12/04/21 12/06/21 12/06/21 Rx hydrocodone 5 mg-acetaminophen 325 1 tab PO Q6H PRN pain #14 tabs 12/04/21 12/06/21 Unknown Rx mg tablet Allergies Allergy/AdvReac Type Severity Reaction Status Date / Time No Known Allergies Allergy Verified 12/05/21 15:22 PFSH Acute PFSH: Medical History History of radioactive iodine thyroid ablation Hypothyroidism, adult Surgical History (Updated 12/06/21 @ 17:25 by Althea Vance MD) History of surgery on lower extremity Social History Smoking and tobacco status: never smoked Second hand smoke exposure: No Alcohol intake: never Adopted: No Lives independently: Yes Marital status: Single Highest education level completed: High School Graduate Current occupational status: employed Vitals/I&O/Wt Last Vital Signs Temp 98.6 F 12/06/21 09:21 Pulse 101 H 12/06/21 13:30 Resp 23 H 12/06/21 13:30 BP 127/74 12/06/21 13:30 Pulse Ox 90 12/06/21 13:30 O2 Del Method 12/06/21 09:21 Weight last 48 hrs Weight 80.739 kg Physical Exam Narrative: Pleasant young male No active shortness of breath He is endorsing chest pain on deep breathing Pleuritic chest pain Abdomen soft Euvolemic Nonfocal neuro exam Currently on room air EOMI, PERRLA Data : 12/06/21 10:12 12/06/21 10:20 A&P Assessment and plan (1) Pulmonary embolism: Status: Acute (2) Chest pain: Status: Acute Plan Provoked pulmonary embolism Start him on heparin drip Submassive PE Check echo, repeat venous Doppler Patient will need at least 3 months of anticoagulation Is currently working in [place] Is plan to go back once he is released from the hospital No hypercoagulable disorder in the family Is full code Regular diet Not requiring oxygen, not tachycardic I will give him anti-inflammatory medication for pleuritic chest pain Attestations Medical Necessity Statement*: Discharge within 48 hours will need monitoring and management of left-sided chest pain related to PE Time Spent in Patient Care: 40 Coding Level of Care Code Acute Skill Labor for Leoncio Bazan Diagnoses Pulmonary embolism I26.99 Chest pain R07.9
--- NOTE | 2021-12-06 15:34 | ECG_ITS ---
[facility] Test Date: 2021-12-06 Pat Name: Sánchez Treadwell Department: Room: Gender: Male Head Of Integrated Media: : 1990 Requested By: Endy Vyas Order Number: [id number] Mauro MD: Courtney Drake M.D. Measurements Intervals [place] Rate: 94 P: 46 AK: 135 QRS: 26 QRSD: 92 T: 30 QT: 332 QTc: 416 Interpretive Statements SINUS RHYTHM POSSIBLE RIGHT VENTRICULAR CONDUCTION DELAY [RSR (QR) IN V1/V2] Compared to ECG 12/06/2021 12:39:31 No significant changes Electronically Signed On 12-07-2021 19:00:32 CDT by Courtney Drake M.D. [id number]
[2021-12-06 16:43] LABS: INR 1.18 (0.8-1.2)
[2021-12-06 16:44] LABS: Partial Thromboplastin Time 33.8 SECONDS (23.9-36.7)
[2021-12-06 16:50] LABS: Troponin 5 2HR Delta 0 ABS# (0-10)
[2021-12-06 17:12] LABS: Troponin 5 6HR Delta 0 ng/L (0-12)
[2021-12-06] MEDS: heparin 5,000 unit/mL INJ 1 mL IV (17:15)
[2021-12-06] MEDS: heparin drip 25,000 UNIT/500 ML PREMIX 22 UNIT IV (17:23)
[2021-12-06] MEDS: morphine IR 15 mg Tablet PO (19:14)
[2021-12-06] MEDS: ketorolac 30 mg/mL INJ 15 MG IVP (19:17)
--- NOTE | 2021-12-06 19:58 | PC.NURSE ---
i reported high temp 99.8 to nurse
[2021-12-06] MEDS: HYDROcodone-acetaminophen 5-325 mg Tablet 1 TAB PO (23:35)
[2021-12-06 23:38] LABS: Partial Thromboplastin Time 53.4 SECONDS (23.9-36.7)
[2021-12-07] VITALS (13 sets, daily range): BP systolic 109–129; BP diastolic 66–82; PULSE 72–97; RESP 16–20; TEMP 36.5–37.8; O2SAT 93–97
[2021-12-07] MEDS: heparin 5,000 unit/mL INJ 1 mL 1600 UNIT IVP (01:03)
[2021-12-07 05:22] LABS: Basophils % 0.4 %; Eosinophils % 0.3 %; Hemoglobin 15.5 g/dL (11.7-16.6); Lymphocytes # 1.8 10^3/uL (0.8-4.8); Mean Corpuscular HGB Conc 32.3 g/dL (30.0-36.0); Mean Corpuscular Hemoglobin 29.9 pg (28.0-34.0); Mean Corpuscular Volume 92.7 fl (80-94); Mean Platelet Volume 9.6 fL (7.4-10.4); Monocytes # 1.3 10^3/uL (0.2-0.9); Monocytes % 13.6 %; Neutrophils % 66.4 %; Nucleated Red Blood Cells % 0 %; Platelet Count 178 10^3/cmm (130-400); Red Blood Count 5.18 10^6/uL (4.1-5.3); Red Cell Distribution Width 11.7 % (12.1-15.1); White Blood Count 9.4 10^3/uL (4.0-10.0)
[2021-12-07 05:42] LABS: Partial Thromboplastin Time 71.4 SECONDS (23.9-36.7)
[2021-12-07 05:51] LABS: Blood Urea Nitrogen 13 mg/dL (6-20); C Reactive Protein 99.1 mg/L (0.0-4.9); Calcium 9.2 mg/dL (8.5-10.5); Carbon Dioxide 28 mmol/L (22-29); Chloride 97 mmol/L (98-107); Glomerular Filtration Rate 87.2 mL/min (90-130); Glucose 90 mg/dL (65-115); Magnesium 1.9 mg/dL (1.7-2.3); Osmolality Calculated 278 mOsm/kg (285-295); Sodium 134 mmol/L (136-145)
[2021-12-07 06:02] LABS: Anion Gap 13.1 (5-19); Potassium 4.1 mmol/L (3.5-5.1)
[2021-12-07 09:31] LABS: NT Pro B Type Natriuretic Pept 43 pg/mL (0-125)
--- NOTE | 2021-12-07 10:05 | PC.CHAP ---
Pastoral Care Encounter/Spiritual Assessment Type of Contact [x] Declined trial judge visit [] Patient/Family/Request visit [] Outpatient visit [] Follow-up visit [] Physician referral [] Code/Alert [] Routine visit [] Staff referral [] Actively dying [] Patient sleeping [] Family support [] [] Out of room [] Palliative care [] [] Receiving care in room [] Pre-surgical visit [] Trauma [] Long length of stay [] ICU visit [] Other: Relational/Emotional Strength [] Patient feels connected with others/family/visitors/staff [] Distress [] Loneliness/isolation [] Abandonment Spirituality of Patient [] Person of [place] [] Attends Adventism of their [place] [] Believes in Prayer [] Reads Bible or Mormon materials [] There are Spiritual issues to be addressed Pot Maker Interventions [] Prayer [] Active listening [] Non-anxious presence [] Spiritual/emotional support [] Crisis/trauma care [] Spiritual counseling [] Bereavement support [] Provided bereavement packet [] Provided Bible/devotional materials [] Provided toy/stuffed animal, coloring book to patient or family member [] Provided Communion [] Anointing/[place] [] Salvation [] Completed spiritual assessment [] Other: Impact on Illness or Injury [] Angry [] Fearful [] Anxious [] Often cries [] Exhaustion [] Unable to work [] Unable to attend episcopal [] Unable to walk/stand [] Unable to read [] Unable to drive [] Unable to eat/drink [] Unable to sleep [] Unable to be with family [] Patient intubated [] Other: Summary Declined trial judge visit Time spent with patient 5 mins
[2021-12-07] MEDS: levothyroxine 112 mcg Tablet PO (10:14)
[2021-12-07] MEDS: sennosides-docusate Tablet 1 TAB PO (10:15)
[2021-12-07] MEDS: morphine IR 15 mg Tablet PO (10:17)
[2021-12-07 11:40] LABS: Partial Thromboplastin Time 56.2 SECONDS (23.9-36.7)
[2021-12-07] MEDS: oxyCODONE 5 mg IR Tab/Cap 10 MG PO (11:58)
[2021-12-07] MEDS: lidocaine 5% Patch 1 PATCH TOPICAL (11:59)
--- NOTE | 2021-12-07 13:56 | PM.MISC ---
Miscellaneous Note Note: This will be my progress note Patient is still complaining of pain, he cannot bear this pain without IV pain meds I will keep him here 1 more day Start IV pain meds Awake and alert On room air Hemodynamically stable Nonfocal neuro exam No audible stridor or wheezing IV pain medications today Start lidocaine patch Watch 1 more day
[2021-12-07] MEDS: heparin drip 25,000 UNIT/500 ML PREMIX 24 UNIT IV (15:48)
[2021-12-07] MEDS: HYDROmorphone 1 mg/mL INJ 1 mL IVP (15:49)
--- NOTE | 2021-12-07 18:58 | USCV_ITS ---
Sánchez Treadwell Age: 31 Gender: M : 1990 Exam Date: 12/07/2021 01:48 Ordering Phys: Althea Vance MD Technologist: NIGEL Exam Location: [facility] Indication: Pulmonary embolus. No history of cardiac intervention per patient. BP: 115 / 69 HR: 90 Rhythm: Sinus Technical Quality: Adequate MEASUREMENTS (Male / Female) Normal Values 2D ECHO LV Diastolic Diameter PLAX 4.5 cm 4.2 - 5.9 / 3.9 - 5.3 cm LV Systolic Diameter PLAX 2.7 cm IVS Diastolic Thickness 0.8 cm 0.6 - 1.0 / 0.6 - 0.9 cm IVS Systolic Thickness 1.0 cm LVPW Diastolic Thickness 0.9 cm 0.6 - 1.0 / 0.6 - 0.9 cm LVPW Systolic Thickness 1.3 cm LVOT Diameter 1.9 cm LV Ejection Fraction 2D Teich 69.6 % LV Ejection Fraction MOD 2C 47.8 % LV Ejection Fraction 2C AL 48.8 % LA Diameter 3.1 cm LA Width 3.5 cm LA Height 5.7 cm RA Width 3.3 cm RA Height 4.1 cm Aorta at Sinotubular Diameter 2.9 cm IVC Diameter 1.5 cm M-MODE Aortic Annulus Diameter 2.9 cm LA Ao Ratio MM 1.1 MV E Point Septal Separation 0.5 cm DOPPLER AV Peak Velocity 123.0 cm/s LVOT Peak Velocity 104.0 cm/s AV Area Cont Eq vti 2.4 cm squared AV Area Cont Eq pk 2.5 cm squared MV Area PHT 3.5 cm squared Mitral E to A Ratio 1.3 MV E' Velocity 48.5 cm/s Mitral E to MV E' Ratio 7.9 Mitral E to LV E' Lateral Ratio 6.5 Mitral E to LV E' Septal Ratio 9.9 TR Peak Velocity 242.7 cm/s TR Peak Gradient 23.6 mmHg TV Peak E Velocity 37.0 cm/s Right Atrial Pressure 5.0 mmHg Pulmonary Artery Systolic Pressu 28.6 mmHg PV Peak Velocity 101.0 cm/s RV Acceleration Time 0.1 s RV Ejection Time 0.4 s RV AcT/ET 0.3 FINDINGS Left Ventricle Normal left ventricular size, systolic function and wall thickness, with no regional wall motion abnormalities. Left ventricular ejection fraction is estimated at 63 %. Normal diastolic function. Right Ventricle Normal right ventricular size and systolic function. Right ventricular systolic pressure 26 mmHg. Right Atrium Normal right atrial size. Right atrial pressure estimated at 3 mm Hg. Left Atrium Normal left atrial size. Mitral Valve Structurally normal mitral valve. No mitral valve stenosis. No mitral valve regurgitation. Aortic Valve Structurally normal trileaflet aortic valve. No aortic valve stenosis. No aortic valve regurgitation. Tricuspid Valve Structurally normal tricuspid valve. No tricuspid valve stenosis. Trace to mild tricuspid valve regurgitation. Pulmonic Valve Structurally normal pulmonic valve. No pulmonary valve stenosis. Trace pulmonary valve regurgitation. Pericardium No pericardial effusion. Aorta Normal size aortic root and proximal ascending aorta. IVC Normal IVC dimension with >50% respiratory change of the inferior vena cava. CONCLUSIONS 1. Normal left ventricular size, systolic function and wall thickness, with no regional wall motion abnormalities. Left ventricular ejection fraction is estimated at 63 %. Normal diastolic function. 2. Normal right ventricular size and systolic function. 3. Trace to mild tricuspid valve regurgitation. 4. Normal pulmonary artery pressure. Courtney Drake MD (Electronically Signed) Final Date: 07 December 2021 14:34 S
--- NOTE | 2021-12-07 18:58 | USCV_ITS ---
Sánchez Treadwell Age: 31 Gender: M : 1990 Exam Date: 12/07/2021 01:13 Ordering Phys: Althea Vance MD Technologist: NIGEL [place]am [place] [facility] [place]ication: pulmonary embolus HISTORY: pulmonary embolus PROCEDURES: Venous duplex imaging was performed in bilateral lower extremities. The venous duplex Doppler examination of both lower extremities was performed in the standard fashion. The following venous structures were evaluated: common femoral vein, profunda vein, proximal portion of the greater saphenous vein, superficial femoral vein, and the popliteal vein. FINDINGS: Normal 2-D Doppler and augmentation and compressibility throughout the lower extremity venous structures. Additional imaging through the proximal calf veins also reveals no thrombus. Limited evaluation of the greater saphenous vein is patent with no thrombus. CONCLUSIONS No DVT bilateral lower extremities. Dr. Gerri Kohler DO (Electronically Signed) Final Date: 07 December 2021 07:30 S
[2021-12-07 19:27] LABS: Partial Thromboplastin Time 49.2 SECONDS (23.9-36.7)
[2021-12-07] MEDS: heparin 5,000 unit/mL INJ 1 mL IV (20:12)
[2021-12-07] MEDS: HYDROmorphone 1 mg/mL INJ 1 mL 0.5 MG IVP (21:09)
[2021-12-08] MEDS: acetaminophen 500 mg Tablet PO (00:15)
[2021-12-08 02:07] LABS: Platelet Count 200 10^3/cmm (130-400)
[2021-12-08] MEDS: heparin 5,000 unit/mL INJ 1 mL IV (02:53)
[2021-12-08 04:00] VITALS: BP 128/83; PULSE 79; RESP 20; TEMP 36.3; O2SAT 96
[2021-12-08 06:00] VITALS: PULSE 89
[2021-12-08 08:00] VITALS: BP 113/75; PULSE 77; PULSE 89; RESP 16; TEMP 36.8; O2SAT 93; O2SAT 95
[2021-12-08] MEDS: levothyroxine 112 mcg Tablet PO (08:37)
[2021-12-08] MEDS: sennosides-docusate Tablet 1 TAB PO (08:38)
[2021-12-08] MEDS: lidocaine 5% Patch 1 PATCH TOPICAL (08:38)
[2021-12-08] MEDS: ibuprofen 200 mg Tablet 400 MG PO (08:39)
[2021-12-08 09:53] VITALS: RESP 18
[2021-12-08] MEDS: HYDROmorphone 1 mg/mL INJ 1 mL 0.5 MG IVP (09:53)
[2021-12-08 10:03] LABS: Partial Thromboplastin Time 39.4 SECONDS (23.9-36.7)
[2021-12-08 13:12] VITALS: RESP 18
--- NOTE | 2021-12-08 13:21 | PM.DCS ---
Discharge Providers Date of Admission: 12/06/21 14:29 Date of Discharge: December 07, 2021 Attending Provider at Admission: Althea Vance MD Attending Provider at Discharge: Althea Vance MD Primary Care Provider: AYLA Torres Diagnoses at Discharge Discharge Diagnosis (1) Pulmonary embolism: Status: Acute (2) Chest pain: Status: Acute Reason for Visit Reason for Visit: chest pains Hospital Course Hospital Course 31-year-old male who was diagnosed with provoked PE after his leg surgery, he was diagnosed with right leg DVT and right-sided PE, presented back to the hospital with chief, worsening left-sided chest discomfort which is pleuritic in nature related to pulmonary infarct. This time he was diagnosed with left-sided PE. Echo requested. Hemodynamically stable. He has received anti-inflammatory and opioids. Which takes the edge off however pain does not subside completely. He has only finished 3 days of 10 mg of Eliquis twice daily regimen, he still has to finish 4 more days to complete loading of Eliquis in the hospital he was treated with IV heparin because of right heart strain. Patient is from [place]. He knows that he has to finish at least 3 months of Eliquis and then he will need another evaluation by his PCP. On this visit no signs of DVT. Troponins remain unremarkable. BNP 43. For his pulmonary infarction induced pain I have prescribed him lidocaine, Dilaudid, oxycodone and emphasized the importance of continuation of Eliquis. I advised him not to drive for now, he is planning to go to [place] via plane. Physical Exam Narrative: Young male Pleuritic chest pain Hemodynamically stable Euvolemic Abdomen soft No respiratory distress Satting well on room air Discharge Data Studies Completed and Pending Completed Studies During Hospitalization Category Date Time Status CTA chest [CT angio chest PE protcl [id number]] Stat Cat Scan 12/06/21 12:14 Completed XR chest 1V portable [id number] Stat Exams 12/06/21 09:33 [place] [id number] Routine Ultrasound 12/07/21 18:58 Completed Pending at discharge Category Date Time Status PTT [Partial Thromboplastin Time] Timed Lab 12/07/21 11:17 Ordered Platelet Count Q2D Lab 12/08/21 04:00 Ordered Platelet Count Q2D Lab 12/10/21 04:00 Ordered CV. echo complete* [id number] Routine Ultrasound 12/07/21 18:58 Taken Radiology Impressions Chest X-Ray 12/06/21 09:33 IMPRESSION: Progression of bilateral lung abnormality, presumably pneumonitis. Chest CTA 12/06/21 12:14 IMPRESSION: 1. Suboptimal opacification of the pulmonary arteries. 2. Despite the suboptimal opacification new pulmonary emboli is noted extending into the LEFT upper and LEFT lower lobe segmental branches. 3. New small bilateral pleural effusions. 4. Progression of bilateral lower lobe pulmonary infarcts and an additional infarct at the lingula. 5. Mild RIGHT heart strain is new. Laboratory Results WBC 9.4 10^3/uL (4.0-10.0) 12/07/21 05:17 RBC 5.18 10^6/uL (4.1-5.3) 12/07/21 05:17 Hgb 15.5 g/dL (11.7-16.6) 12/07/21 05:17 Hct 48.0 % (42.0-52.0) 12/07/21 05:17 MCV 92.7 fl (80-94) 12/07/21 05:17 MCH 29.9 pg (28.0-34.0) 12/07/21 05:17 MCHC 32.3 g/dL (30.0-36.0) 12/07/21 05:17 RDW 11.7 % (12.1-15.1) L 12/07/21 05:17 Plt Count 178 10^3/cmm (130-400) 12/07/21 05:17 MPV 9.6 fL (7.4-10.4) 12/07/21 05:17 Neut % (Auto) 66.4 % 12/07/21 05:17 Lymph % (Auto) 19.0 % 12/07/21 05:17 [place] % (Auto) 13.6 % 12/07/21 05:17 Eos % (Auto) 0.3 % 12/07/21 05:17 Baso % (Auto) 0.4 % 12/07/21 05:17 Neut # (Auto) 6.20 10^3/uL (1.8-7.7) 12/07/21 05:17 Lymph # (Auto) 1.8 10^3/uL (0.8-4.8) 12/07/21 05:17 [place] # (Auto) 1.3 10^3/uL (0.2-0.9) H 12/07/21 05:17 Eos # (Auto) 0.0 10^3/uL (0.0-0.8) 12/07/21 05:17 Baso # (Auto) 0.0 10^3/uL (0.0-0.1) 12/07/21 05:17 Nucleated RBC % (auto) 0 % 12/07/21 05:17 Nucleated RBCs # 0.0 /100WBC 12/07/21 05:17 PT 15.40 SECONDS (12.1-14.9) H 12/06/21 15:18 INR 1.18 (0.8-1.2) 12/06/21 15:18 APTT 71.4 SECONDS (23.9-36.7) H 12/07/21 05:17 Sodium 134 mmol/L (136-145) L 12/07/21 05:17 Potassium 4.1 mmol/L (3.5-5.1) 12/07/21 05:17 Chloride 97 mmol/L (98-107) L 12/07/21 05:17 Carbon Dioxide 28 mmol/L (22-29) 12/07/21 05:17 Anion Gap 13.1 (5-19) 12/07/21 05:17 BUN 13 mg/dL (6-20) 12/07/21 05:17 Creatinine 1.0 mg/dL (0.7-1.2) 12/07/21 05:17 GFR Calculation 87.2 mL/min (90-130) L 12/07/21 05:17 Glucose 90 mg/dL (65-115) 12/07/21 05:17 Calculated Osmolality 278 mOsm/kg (285-295) L 12/07/21 05:17 Calcium 9.2 mg/dL (8.5-10.5) 12/07/21 05:17 Magnesium 1.9 mg/dL (1.7-2.3) 12/07/21 05:17 Total Bilirubin 0.7 mg/dL (0.15-1.2) 12/06/21 10:20 AST 21 U/L (0-40) 12/06/21 10:20 ALT 15 U/L (0-41) 12/06/21 10:20 Alkaline Phosphatase 86 IU/L (40-130) 12/06/21 10:20 Troponin T Baseline 6 ng/L (0-15) 12/06/21 10:12 Troponin T 120 Minute 6.00 ng/L (0-15) 12/06/21 12:33 Delta Troponin T 0 ABS# (0-10) 12/06/21 12:33 Troponin T Hi Sens 6Hr 6.00 ng/L (0-15) 12/06/21 16:16 Troponin T Hi Sens 6Hr Delta 0 ng/L (0-12) 12/06/21 16:16 C-Reactive Protein 99.1 mg/L (0.0-4.9) H 12/07/21 05:17 NT-Pro-B Natriuret Pep 43 pg/mL (0-125) 12/07/21 05:17 Total Protein 8.0 g/dL (6.6-8.7) 12/06/21 10:20 Albumin 4.4 g/dL (3.5-5.2) 12/06/21 10:20 Globulin 3.6 g/dL (1.3-4.6) 12/06/21 10:20 Vitals Last Vital Signs Temp 98.3 F 12/07/21 07:31 Pulse 82 12/07/21 07:31 Resp 16 12/07/21 10:17 BP 109/74 12/07/21 07:31 Pulse Ox 95 12/07/21 10:17 O2 Del Method 12/07/21 07:31 Discharge Plan Discharge Patient Disposition: Home Condition: Stable Prescriptions: New Stool Softener-Laxative 8.6-50 mg Tablet 1 tab PO DAILY Qty: 30 0RF ibuprofen 200 mg Tablet 400 mg PO Q6H PRN (Reason: Moderate Pain) Qty: 30 0RF Dilaudid 2 mg tablet 2 mg PO Q6H PRN (Reason: pain) Qty: 10 0RF Senna-S 8.6-50 mg tablet 1 tab-cap PO DAILY Qty: 30 0RF oxycodone-acetaminophen 10-325 mg tablet 1 tab PO Q6H PRN (Reason: pain) Qty: 20 0RF lidocaine 5 % adhesive patch,medicated 1 patch topical .[id number] Qty: 30 0RF Rx Instructions: leave on most painful area for up to 12 hrs Continued levothyroxine 112 mcg tablet 112 mcg PO DAILY 90 Days Qty: 90 3RF Rx Instructions: no substitutions, levothyroxine only Eliquis 5 mg tablet 10 mg PO BID 7 Days Qty: 28 0RF Rx Instructions: x 7 days then start 5mg BID Eliquis 5 mg tablet 5 mg PO BID Qty: 60 0RF Rx Instructions: start after first week of 10mg bid Discontinued hydrocodone-acetaminophen 5-325 mg tablet 1 tab PO Q6H PRN (Reason: pain) Qty: 14 0RF Discharge Orders: Discharge Order (Routine); Ordered 12/08/21 Ordered By: Althea Vance Referrals: Shira Navarro FNP-C [Primary Care Provider] - 12/14/21 9:00 am Patient Instructions: Oxycodone/Acetaminophen (By mouth), Laxative, Stool Softeners (By mouth) (Doculax, Colace, Colace Clear, DSS), Hydromorphone (By mouth) (Dilaudid, Exalgo), Lidocaine (On the skin) (Anecream, Astero, Burn-O-Jel, Burnamycin, Ztlido), Pulmonary Embolism (DC), Opioid Safety Activity Restrictions/Additional Instructions: Finish Eliquis 10 mg twice daily for 7 more days and then start 5 mg twice daily for at least 3 months Discharge Attestations Time Spent in Discharge Care*: less than 30 min Quality Metrics Clinical Quality Measures [ No reported AMI, CVA or VTE this stay] Coding Level of Care Code Acute Chg FW DC note Diagnoses Pulmonary embolism I26.99 Chest pain R07.9
== END 2021-12-08 13:10 | disposition home or self-care (01) ==
LOC: ER 14:30 → MEDSURG 17:50
PROVIDERS: Emergency Medicine; Admitting Provider Internal Medicine; Emergency Provider Physician Assistant; PCP Nurse Practitioner Family; Visit Provider Internal Medicine
DX: I26.99 Other pulmonary embolism without acute cor pulmonale (principal); R07.9 Chest pain, unspecified; Z86.718 Personal history of other venous thrombosis and embolism; E03.9 Hypothyroidism, unspecified
CPT/HCPCS: 36415; 71045; 71275; 80048; 80053; 83735; 83880; 84484; 85025; 85049; 85610; 85730; 86140; 93005; 93306; 93970; 94760; 96365; 96375; 96376; 99285; G0378; J1170; J1644; J1885; J2270; J2405; Q9967

== ENCOUNTER 2022-01-18 13:44 | Oncology outpatient (recurring) (ONCR) | payer OTHER, SELFPAY ==
--- NOTE | 2022-01-18 14:02 | CT_ITS ---
WS: [id number] CTA OF THE CHEST WITH PULMONARY EMBOLISM PROTOCOL TECHNIQUE: High-resolution contrast enhanced CTA of the chest with coronal and sagittal reformatted i mages with pulmonary embolism protocol. MIP images are also reviewed. CLINICAL INFORMATION: compare to previous COMPARISON: December 06, 2021 DLP: 495.[address] scans at [facility] use at least one of these dose optimization techniques: automated e xposure control; mA and/or kV adjustment per patient size (includes targeted exams where dose is matc hed to clinical indication); or iterative reconstruction. FINDINGS: Proximal main pulmonary arteries are normal. Segmental and subsegmental pulmonary arteries appear pat ent. No new pulmonary embolus today. Previously described pulmonary emboli appear resolved. Normal caliber thoracic aorta. No mediastinal or hilar lymphadenopathy. No axillary lymphadenopathy. Adrenal glands are normal. Normal GE junction. Normal visualized thoracic spine. Previously described pulmonary infiltrates/infarcts have resolved. Slight bibasilar atelectasis. No evidence of RIGHT hea rt strain today. CT/CT angio chest PE protcl [id number] IMPRESSION: 1. No evidence of new or progressed pulmonary embolus today. Previously descri bed pulmonary emboli have resolved. 2. No evidence of RIGHT heart strain today. 3. Previously described infiltrates/pulmonary infarcts have resolved. No new i nfiltrates. Slight bibasilar atelectasis.
[2022-01-18] MEDS: iohexol 350 mg/mL 100 mL Btl IV (14:38)
== END 2022-01-26 23:59 | disposition home or self-care (01) ==
LOC: RAD 01-22 12:42 → ONCMED 01-25 06:22
PROVIDERS: PCP Nurse Practitioner Family; Visit Provider Internal Medicine Medical Oncology
DX: I26.99 Other pulmonary embolism without acute cor pulmonale (principal)
CPT/HCPCS: 71275

== ENCOUNTER 2022-03-26 11:47 | Oncology outpatient (recurring) (ONCR) | payer OTHER, SELFPAY ==
[2022-03-26 13:16] LABS: Basophils # 0.1 10^3/uL (0.0-0.1); Eosinophils # 0.1 10^3/uL (0.0-0.8); Eosinophils % 1.1 %; Hematocrit 50.2 % (42.0-52.0); Lymphocytes # 1.5 10^3/uL (0.8-4.8); Mean Corpuscular HGB Conc 33.9 g/dL (30.0-36.0); Mean Corpuscular Hemoglobin 29.8 pg (28.0-34.0); Mean Corpuscular Volume 88.1 fl (80-94); Mean Platelet Volume 9.7 fL (7.4-10.4); Monocytes # 0.4 10^3/uL (0.2-0.9); Monocytes % 6.5 %; Neutrophils # 4.11 10^3/uL (1.8-7.7); Neutrophils % 67.2 %; Nucleated Red Blood Cells % 0 %; Platelet Count 195 10^3/cmm (130-400); White Blood Count 6.1 10^3/uL (4.0-10.0)
[2022-03-26 13:47] LABS: Alanine Aminotransferase 29 U/L (0-41); Albumin Level 4.7 g/dL (3.5-5.2); Alkaline Phosphatase 68 U/L (40-130); Anion Gap 14.2 (5-19); Aspartate Amino Transferase 25 U/L (0-40); Blood Urea Nitrogen 14 mg/dL (6-20); Calcium 9.5 mg/dL (8.5-10.5); Carbon Dioxide 29 mmol/L (22-29); Chloride 99 mmol/L (98-107); Globulin 2.9 g/dL (1.3-4.6); Glomerular Filtration Rate 98.4 mL/min (90-130); Glucose 91 mg/dL (65-115); Osmolality Calculated 286 mOsm/kg (285-295); Potassium 4.2 mmol/L (3.5-5.1); Sodium 138 mmol/L (136-145); Thyroid Stimulating Hormone 2.58 uIU/mL (0.27-4.20); Total Bilirubin 0.8 mg/dL (0.15-1.2); Total Protein 7.6 g/dL (6.6-8.7)
[2022-03-29 04:45] LABS: Beta 2 Glycoprotein IGA <2.0 U/mL (<20.0); Beta 2 Glycoprotein IGG <2.0 U/mL (<20.0); Beta 2 Glycoprotein IGM <2.0 U/mL (<20.0)
[2022-03-29 07:25] LABS: CARDIOLIPIN AB (IGA) <2.0 APL-U/mL; CARDIOLIPIN AB (IGG) <2.0 GPL-U/mL; CARDIOLIPIN AB (IGM) <2.0 MPL-U/mL
== END 2022-03-28 23:59 | disposition home or self-care (01) ==
LOC: ONCMED 11:54
PROVIDERS: PCP Nurse Practitioner Family; Referring Provider Nurse Practitioner Family; Visit Provider Internal Medicine Medical Oncology
DX: I26.99 Other pulmonary embolism without acute cor pulmonale (principal)
CPT/HCPCS: 36415; 80053; 84443; 85025; 86146; 86147

== ENCOUNTER → 2023-04-23 09:15 | Outpatient (BNVA) | payer OTHER, SELFPAY | PROVIDERS: PCP Nurse Practitioner Family; Visit Provider Nurse Practitioner Family | DX: E03.9 Hypothyroidism, unspecified (principal); Z13.6 Encounter for screening for cardiovascular disorders | CPT/HCPCS: 80053; 80061; 84443; 85025 ==

== ENCOUNTER → 2024-04-20 08:12 | Outpatient (BNVA) | payer OTHER, SELFPAY | PROVIDERS: PCP Nurse Practitioner Family; Visit Provider Clinical Nurse Specialist Adult Health | DX: E03.9 Hypothyroidism, unspecified (principal) | CPT/HCPCS: 84443 ==

== ENCOUNTER → 2025-04-19 08:12 | Outpatient (BNVA) | payer OTHER, SELFPAY | PROVIDERS: PCP Clinical Nurse Specialist Adult Health; Visit Provider Clinical Nurse Specialist Adult Health | DX: E03.9 Hypothyroidism, unspecified (principal) | CPT/HCPCS: 80053; 80061; 84443; 85025 ==